=== PATIENT | male | born 1955 ===

== ENCOUNTER → 2021-09-28 10:32 | Outpatient (CLI) | payer MEDICARE, SELFPAY ==
[2021-09-28 21:18] LABS: SARS-CoV-2 RNA PCR Negative
== END ==
PROVIDERS: PCP Internal Medicine; Visit Provider Internal Medicine
DX: J11.1 Influenza due to unidentified influenza virus with other respiratory manifestations (principal); Z20.822 Contact with and (suspected) exposure to COVID-19
CPT/HCPCS: C9803; U0003; U0005

== ENCOUNTER 2021-10-24 11:22 | Emergency (ER) | payer MEDICARE, SELFPAY ==
--- NOTE | ~2021-10-24 | XR_ITS ---
XR tibia fibula LT 2V DATE: 10/24/2021 13:06 INDICATION: Patient fell this morning. Left ankle pain, swelling TECHNIQUE: AP and lateral views COMPARISON: October 24, 2021 left ankle FINDINGS: There is a linear oblique fracture through the proximal fibular shaft with one cortical wid th lateral and anterior displacement. Linear minimally posterosuperiorly displaced posterior malleolar fracture of the distal tibia. Alignment appears intact at the knee and ankle joints. IMPRESSION: Approximately one cortical width anterolateral displacement and linear oblique fracture o f the proximal fibular shaft Minimally posterior superiorly displaced posterior malleolar fracture Reviewed, dictated and finalized at location A. L CUT OFF SAW OPERATOR IMPRESSION: Approximately one cortical width anterolateral displacement and daniela ear oblique fracture of the proximal fibular shaft Minimally posterior superiorly displaced posterior malleolar fracture
--- NOTE | ~2021-10-24 | CT_ITS ---
EXAMINATION: CT ankle LT wo con DATE: 10/24/2021 13:54 INDICATION: Posterior malleolar fracture at the left ankle TECHNIQUE: High resolution computed tomography (CT) of the left ankle was performed without intraveno us contrast. Additional sagittal and coronal reconstructions were performed. The mA was adjusted acco rding to patient size. Iterative reconstruction technique was employed. The dose-length product was 3 97.63 mGy-cm. COMPARISON: Left ankle and tibia/fibular radiographs dated 10/24/2021 FINDINGS: Minimally displaced coronally oriented fracture extending across the posterior malleolus. There is co mminution with multiple tiny fracture fragments along the articular surface at the level of the joint line. There is slight widening of the medial clear space as well as widening of the distal tibiofibu lar syndesmosis which along with the previous noted fracture the more proximal fibula would be consis tent with disruption of the deltoid ligament, anterior inferior tibiofibular ligament and tibiofibula r syndesmosis. There are heterotopic ossicles along the deep deltoid ligament as well as prominent hy pertrophic change at the inferior tip of the lateral malleolus both likely sequela of chronic sprains . There is irregular cortical contour along the medial rim of the talar dome with chronic appearance which could represent sequela of either chronic osteochondral lesion or overlying chondromalacia. Ent hesopathic ossicles at the calcaneal insertion of the distal Achilles tendon as well as at the calcan eal origin of the proximal plantar aponeurosis. Likely osteoarthritis related degenerative subchondra l cystic changes at the first and second tarsal metatarsal joints as well as at the articulation betw een the medial and mid cuneiforms. IMPRESSION: 1. Nondisplaced comminuted fractures of the posterior malleolus of the distal left tibia. 2. Slight widening of the medial clear space, distal tibiofibular syndesmosis and more proximal fract ure of the fibula seen on prior radiographs suggesting disruption of the deltoid ligament, anterior i nferior tibiofibular ligament and tibiofibular syndesmosis. 3. Gaseous/hypertrophic changes suggesting sequela of prior chronic sprains of the medial and lateral ankle ligaments. Reviewed, dictated and finalized at location A. PRESS HAND IMPRESSION: 1. Nondisplaced comminuted fractures of the posterior malleolus of the distal l eft tibia. 2. Slight widening of the medial clear space, distal tibiofibular syndesmosis a nd more proximal fracture of the fibula seen on prior radiographs suggesting di sruption of the deltoid ligament, anterior inferior tibiofibular ligament and t ibiofibular syndesmosis. 3. Gaseous/hypertrophic changes suggesting sequela of prior chronic sprains of the medial and lateral ankle ligaments.
--- NOTE | ~2021-10-24 | XR_ITS ---
EXAMINATION: XR ankle LT min 3V EXAM DATE: 10/24/2021 11:44 INDICATION: fall, edema and pain TECHNIQUE: Left ankle frontal, lateral and oblique projections obtained and reviewed. There is no pr ior study for comparison. FINDINGS: The left ankle mortise appears intact. On the lateral projection there is lucency throug h the posterior aspect of the malleolus, however portions appear to be better corticated. Could be ol d fracture or acute refracture of prior injury. This finding has been indicated, marked on the examin ation for review, clinical correlation. Ossification distal to the medial malleolus consistent with p rior avulsion injury. Base of 5th metatarsal unremarkable. There is ankle swelling anteromedially. IMPRESSION: Posteriorly located cortical abnormality probably tibial, could be chronic or acute on o n chronic finding. Clinical correlation, consider CT without contrast. Reviewed, dictated and finalized at location B. IAL EDUCATION RESOURCE TEACHER IMPRESSION: Posteriorly located cortical abnormality probably tibial, could be chronic or acute on on chronic finding. Clinical correlation, consider CT with out contrast.
[2021-10-24 11:27] VITALS: BP 157/76; PULSE 99; RESP 20; TEMP 36.4; O2SAT 100
--- NOTE | 2021-10-24 12:40 | ED.EXTPRO ---
HPI - Extremity Problem General Chief complaint: Fall Stated complaint: fall - ankle injury Time Seen by Provider: 10/24/21 11:32 Source: patient Mode of arrival: ambulatory Limitations: no limitations History of Present Illness HPI Narrative: 66-year-old male Slipped and fell this morning Complains of left-sided ankle pain He has been able to bear some weight but was concerned because of the speed with which swelling ensued No head injury no other injuries no other complaints Related Data Allergies Allergy/AdvReac Type Severity Reaction Status Date / Time atorvastatin Allergy Unknown Unknown Verified 10/24/21 11:30 simvastatin Allergy Unknown Unknown Verified 10/24/21 11:30 Review of Systems Review of Systems: All systems reviewed & are unremarkable except as noted in HPI and below Constitutional: Constitutional: Denies chills, Denies fever(s) and Denies headache(s) ENT: Denies headache(s) Cardiovascular: Cardiovascular: Denies dyspnea Gastrointestinal: Gastrointestinal: Denies vomiting Musculoskeletal: Musculoskeletal: Denies back pain, Denies deformity, Reports arthralgias, Reports joint swelling and Denies numbness Integumentary/Breasts: Skin/Breast: Denies wounds Neurologic: Denies headache(s), Denies focal weakness and Denies numbness PMFSH Family History Family History Father Hypertension Social History Social History Smoking status: Light tobacco smoker Alcohol intake: current Exam Const: General: cooperative, no acute distress and alert Orientation/consciousness: patient oriented x3 (alert) HENMT: Head: normal to inspection, normocephalic, atraumatic, no contusions and no hematomas Ears: external ears normal General nose exam: no epistaxis Eyes: Conjunctivae: conjunctivae normal EOM: EOMs intact bilaterally Neck: Neck: normal visual inspection, supple and no JVD Resp: Effort & Inspection: normal respiratory effort and not labored Auscultation: other (BS =) Skin: General skin exam: normal color and no rashes or lesions noted Neuro: General: patient oriented x3 (alert) and moves all extremities Speech: normal speech Extrem: Other: Left lower extremity, no tenderness or swelling at the knee, slight tenderness over the proximal fibula, no tenderness at the base of the fifth metatarsal or distal fibula, there is tenderness at the posterior margin of the medial malleolus Psych: Affect: normal affect Course Course Emergency Course: Discussed with Dr. Hall from Ortho and got some extra imaging and labs for him Discussed with Dr. Jennings, because the EKG is not normal Will start him on low-dose metoprolol and he can be seen in the office probably tomorrow Have Ortho follow-up on Sunday He was splinted by techs and given crutches and understands not to put any weight on his splint and elevate the foot is much as possible Vital Signs Vital signs: Vital Signs Temperature 36.4 C 10/24/21 11:27 Pulse Rate 99 10/24/21 11:27 Respiratory Rate 20 10/24/21 11:27 Blood Pressure 157/76 H 10/24/21 11:27 Pulse Oximetry 100 10/24/21 11:27 Temperature 36.4 C 10/24/21 11:27 Pulse Rate 99 10/24/21 11:27 Respiratory Rate 20 10/24/21 11:27 Blood Pressure 157/76 H 10/24/21 11:27 Pulse Oximetry 100 10/24/21 11:27 MDM - Extremity (Nontraumatic) Lab Data Result diagrams: 10/24/21 15:04 10/24/21 15:04 Labs: Lab Results 10/24/21 10/24/21 10/24/21 Range/Units 15:04 15:04 15:04 WBC 9.6 (4.5-10.0) K/mm3 RBC 5.24 (4.6-6.20) M/mm3 Hgb 17.3 (14.0-18.0) g/dL Hct 50.2 (42.0-52.0) % MCV 95.8 (80-100) fl MCH 33.0 (26-34) pg MCHC 34.5 (32-36) g/dl RDW 12.5 (11.5-14.5) % Plt Count 208 (150-375) k/mm3 MPV 10.9 H (7.4-10.4) fl Immature Gran % (Auto) 0.4 (0-0.5) %
[2021-10-24 15:20] LABS: Basophils Absolute Auto 0.1 K/mm3 (0.0-0.1); Basophils Percent Auto 0.5 % (0.2-1.2); Eosinophils Percent Auto 0.4 % (0-4.4); Hematocrit 50.2 % (42.0-52.0); Hemoglobin 17.3 g/dL (14.0-18.0); Immature Granulocyte Absolute 0.04 K/mm3 (0.00-0.031); Immature Granulocyte Percent A 0.4 % (0-0.5); Lymphocytes Absolute Auto 1.13 K/mm3 (0.9-3.2); Lymphocytes Percent Auto 11.8 % (18.3-44.2); Mean Corpuscular HGB Conc 34.5 g/dl (32-36); Mean Corpuscular Volume 95.8 fl (80-100); Mean Platelet Volume 10.9 fl (7.4-10.4); Monocytes Absolute Auto 0.4 K/mm3 (0.1-0.6); Monocytes Percent Auto 4.6 % (2.6-8.5); Neutrophils Absolute Auto 7.9 K/mm3 (1.3-6.7); Neutrophils Percent Auto 82.3 % (45.5-73.1); Platelet Count Result 208 k/mm3 (150-375); Red Blood Count 5.24 M/mm3 (4.6-6.20); Red Cell Distribution Width 12.5 % (11.5-14.5); White Blood Count 9.6 K/mm3 (4.5-10.0)
[2021-10-24 15:33] LABS: Anion Gap 10 mmol/L (8-16); Blood Urea Nitrogen 15 mg/dL (9-20); Calcium 9.4 mg/dL (8.4-10.2); Carbon Dioxide 27 mmol/L (22-30); Chloride 102 mmol/L (98-107); Estimated CRCL calculation 73 ml/min; Estimated Glomerular Filt Rate > 60; Glucose 199 mg/dL (65-110); Sodium 139 mmol/L (137-145)
[2021-10-24 15:49] LABS: Vitamin D 25 Hydroxy 30.4 ng/mL
[2021-10-24] MEDS: HYDROcodone/acetaminophen (*CRX) 7.5-325 MG TABLET 1 TAB PO (17:29)
--- NOTE | 2021-10-24 17:29 | ECG_ITS ---
Measurements Intervals [place] Rate: 100 P: VA: 0 QRS: 23 QRSD: 86 T: 44 QT: 344 QTc: 445 Interpretive Statements ATRIAL FIBRILLATION WITH RAPID VENTRICULAR RESPONSE VENTRICULAR PREMATURE COMPLEX ANTEROSEPTAL INFARCT, AGE INDETERMINATE BASELINE ARTIFACT- I, II, III, AVR, AVL, AVF, V3-V4 ABNORMAL ECG Electronically Signed On 10-25-2021 7:40:12 [employer] by German Portillo D.O.
[2021-10-24 17:30] VITALS: BP 169/118; PULSE 74; RESP 20; O2SAT 99
[2021-10-24] MEDS: METOPROLOL TARTRATE 25 MG TABLET PO (17:30)
== END 2021-10-24 17:53 | disposition home or self-care (01) ==
PROVIDERS: Emergency Provider Emergency Medicine; PCP Internal Medicine
DX: S82.862A Displaced Maisonneuve's fracture of left leg, initial encounter for closed fracture (principal); I48.91 Unspecified atrial fibrillation; I49.3 Ventricular premature depolarization; F17.200 Nicotine dependence, unspecified, uncomplicated; R94.31 Abnormal electrocardiogram [ECG] [EKG]; Z79.899 Other long term (current) drug therapy; W00.0XXA Fall on same level due to ice and snow, initial encounter
CPT/HCPCS: 29515; 36415; 73590; 73600; 73610; 73700; 80048; 82306; 85025; 93005; 99284; A9270

== ENCOUNTER 2021-11-04 03:52 | Day surgery (SDC) | payer MEDICARE, SELFPAY ==
[2021-10-25 11:22] VITALS: BMI 29.9
--- NOTE | 2021-10-25 11:40 | PC.NURSE ---
Report to the Outpatient Waiting Room, entrance under the green pavilion located off [facility], at time __1100AM on date __10/31/21____. OR Time: __1:00PM . - You will be asked a series of questions to screen for COVID 19 for your protection. - A mask is required within the hospital. - No visitors are allowed at this time. Preoperative COVID Testing Requirements: No COVID Test needed if: (proof is required; if not received patient will have Rapid Test prior to entry) - Patient has received COVID Vaccine at least 14 days prior to procedure date or - Patient has positive COVID test result within last 90 days of surgery date. COVID Test needed if above criteria is not met If not COVID vaccinated a COVID test must be conducted within 72 hours of surgery and patient is asked to isolate self from time of testing until procedure. You will go to the [facility] Testing Site for your COVID testing. The [facility] is located at the corner of [address] [facility]. You will only be called if COVID results are positive and your surgeon may reschedule your elective surgery date. Patients may have clear liquids (water, carbonated beverages, clear teas, apple juice) until 3 hours prior to surgery with a maximum of 20 ounces. - No food from midnight until time of surgery - Infants may have breast milk until 4 hours before surgery, formula 6 hours prior to surgery. - Children will be allowed to drink immediately following surgery. If applicable, please bring a bottle or sippy cup to assist with drinking. Juice, water, soda, and popsicles are readily available. For infants on formula, please bring formula the day of surgery. Pacifiers are allowed. Take the following medications with a SIP of water the morning of surgery: ____METOPROLOL, HYDROCODONE NEEDED Medications to discontinue per physician ALL VITAMINS/SUPPLEMENTS 3 DAYS PRE-OP Date to take last dose 10/28/21 Please no make-up, nail khmer, hairspray, perfume, deodorant, or body powder the day of surgery. No jewelry (including any body piercings) or valuables the day of surgery, leave them at home. Please take a shower or bath the night before, or the morning of, surgery with an antibacterial soap. Wear comfortable, loose fitting clothing. Children are encouraged to wear pajamas. - Jewelry must be removed prior to entering the operating room. Rings and piercings that are not removed may be cut off. - The hospital will not accept responsibility for valuables. - Please leave all valuables, including medications, at home the day of surgery. If you are going home after surgery, a licensed driver merchandiser must drive you home. - NO public transportation without another adult. - We recommend that an adult stay with you for 24 hours following discharge. - We also recommend that you do not drive, make important decision, drink alcoholic beverages, or take any drugs that were not prescribed by your health care provider for at least 24 hours after your discharge time. For Pediatric surgeries, we recommend two adults accompany the child home (only one inside the building at this time). Follow any additional instructions given to you from your surgeon. Telephone instructions given to __PATIENT and asked if any additional questions and then verbalized understanding. Patient advised to call surgeon office or pre surgery nurse liaison [phone] if any additional questions.
--- NOTE | 2021-10-27 10:24 | PC.NURSE ---
Report to the Outpatient Waiting Room, entrance under the green pavilion located off [facility], at time __10:00AM__ on date 11/04/21 . OR Time: ___12:00PM . - You will be asked a series of questions to screen for COVID 19 for your protection. - A mask is required within the hospital. - No visitors are allowed at this time. Preoperative COVID Testing Requirements: No COVID Test needed if: (proof is required; if not received patient will have Rapid Test prior to entry) - Patient has received COVID Vaccine at least 14 days prior to procedure date or - Patient has positive COVID test result within last 90 days of surgery date. COVID Test needed if above criteria is not met If not COVID vaccinated a COVID test must be conducted within 72 hours of surgery and patient is asked to isolate self from time of testing until procedure. You will go to the [facility] Testing Site for your COVID testing. The [facility] is located at the corner of [address] [facility]. You will only be called if COVID results are positive and your surgeon may reschedule your elective surgery date. Patients may have clear liquids (water, carbonated beverages, clear teas, apple juice) until 3 hours prior to surgery with a maximum of 20 ounces. - No food from midnight until time of surgery - Infants may have breast milk until 4 hours before surgery, formula 6 hours prior to surgery. - Children will be allowed to drink immediately following surgery. If applicable, please bring a bottle or sippy cup to assist with drinking. Juice, water, soda, and popsicles are readily available. For infants on formula, please bring formula the day of surgery. Pacifiers are allowed. Take the following medications with a SIP of water the morning of surgery: METOPROLOL, HYDROCODONE NEEDED Medications to discontinue per physician ALL VITAMINS/SUPPLEMENTS 3 DAYS PRE-OP Date to take last dose 10/31/21 Please no make-up, nail cape verdean, hairspray, perfume, deodorant, or body powder the day of surgery. No jewelry (including any body piercings) or valuables the day of surgery, leave them at home. Please take a shower or bath the night before, or the morning of, surgery with an antibacterial soap. Wear comfortable, loose fitting clothing. Children are encouraged to wear pajamas. - Jewelry must be removed prior to entering the operating room. Rings and piercings that are not removed may be cut off. - The hospital will not accept responsibility for valuables. - Please leave all valuables, including medications, at home the day of surgery. If you are going home after surgery, a licensed tank wagon driver must drive you home. - NO public transportation without another adult. - We recommend that an adult stay with you for 24 hours following discharge. - We also recommend that you do not drive, make important decision, drink alcoholic beverages, or take any drugs that were not prescribed by your health care provider for at least 24 hours after your discharge time. For Pediatric surgeries, we recommend two adults accompany the child home (only one inside the building at this time). Follow any additional instructions given to you from your surgeon. Telephone instructions given to ___PATIENT and asked if any additional questions and then verbalized understanding. Patient advised to call surgeon office or pre surgery nurse liaison [phone] if any additional questions.
--- NOTE | 2021-11-03 14:58 | WPDANESEPPF ---
Anes - Initial Pre Proc Eval Procedure: Operation Date: 11/04/21 12:00 Proposed Procedures p Open Reduction Internal Fixation with Syndesmotic Fixation Left Ankle - Everton Hall MD Date/Time: 11/03/21 14:58 Surgeon: Everton Hall MD Pre Op Diagnosis: left ankle massoneuve fx Patient Data Age: 66 Gender: M Height: 1.68 m Weight: 84 kg Allergies Allergy/AdvReac Type Severity Reaction Status Date / Time atorvastatin AdvReac Unknown HEAT Verified 10/27/21 10:23 INTOLERANT, MUSCLE WEAKNESS simvastatin AdvReac Unknown HEAT Verified 10/27/21 10:23 INTOLERANCE, MUSCLE WEAKNESS Home Medications Medication Instructions Recorded Confirmed Type Km Supplement 1 tab-cap PO DAILY 10/25/21 10/27/21 History hydrocodone-acetaminophen 1 tablet PO Q4-6H PRN 10/25/21 10/27/21 History lorazepam 1 mg PO HS 10/25/21 10/27/21 History metoprolol tartrate 50 mg PO BID 10/27/21 10/27/21 History Results Review: All pre-operative results and documents have been reviewed as part of the pre-operative evaluation. COUNTS INCLUDE 234 BEDS AT THE [facility] Past Medical History Medical History (Updated 11/03/21 @ 15:00 by Kieran Oneal MD) Anxiety Atrial fibrillation CHF (congestive heart failure) ef 30% Osteoarthritis Overweight (BMI 25.0-29.9) Family History Family History Father Hypertension Social History Social History Smoking packs per day: 1 Smoking cigarettes per day: 20.0 Years smoked: 20 Smoking pack-years: 20.00 Smoking status: Former smoker Tobacco type: cigarettes Smoking end date: 03/17/00 Alcohol intake: current Drinks per week: 5 Substance use: current Substance use type: marijuana Other substance usage details: SMALL BUD EVERY DAY Living arrangements: with family Additional living arrangements comments: Spiritual care concerns: No Anes - Eval Final PreProcedure Day of Procedure 11/03/21 14:58 Patient weight: overweight Heart: regular rate and rhythm Lungs: clear to auscultation and normal air movement Airway: Mallampati scale class II Neurological: alert and oriented Last oral intake: >/= 8 hours ASA classification: IV Emergent: no Anesthetic plan: proceed Anesthesia type and monitoring: general LMA Results Review: All pre-operative results and documents have been reviewed as part of the pre-operative evaluation. Informed Consent: The patient's anesthetic plan and its attendant risks and benefits were discussed with the patient/family/POA. Questions were solicited and answers provided to the satisfaction of the patient/family/POA.
[2021-11-04] VITALS (15 sets, daily range): BP systolic 113–134; BP diastolic 86–96; PULSE 45–111; RESP 15–20; TEMP 36.1–37.1; O2SAT 96–100
--- NOTE | ~2021-11-04 | XR_ITS ---
EXAMINATION: XR surgery orthopedic DATE: 11/04/2021 14:37 INDICATION: ORIF left ankle fracture TECHNIQUE: 5 fluoroscopic images of the left ankle were obtained during procedure performed by Dr. Nate lora. Radiologist was not present for the imaging or procedure. The amount of fluoroscopy time used during this procedure was 2.8 minutes. COMPARISON: 11/03/2021 FINDINGS: Images demonstrate reduction and temporary percutaneous pin fixation of the syndesmotic injury of the left lower leg normal alignment with congruent ankle mortise. Subsequent images demonstrate syndesmo tic fixation with a lateral to medially directed cancellous screw extending across the metadiaphyseal regions of the distal tibia and fibula and a pair of tightrope type syndesmotic fixation extending a cross the metaphyseal regions of the distal tibia and fibula. No significant change in negligible dis placement of the previous noted comminuted fracture along the posterior malleolus which is in near-an atomic alignment with slight depression of the articular surface along the posterior most remaining o f the tibial plafond and but no significant fracture gap or step-off at the articular fracture line. IMPRESSION: 1. Near-anatomic alignment post reduction and internal fixation of the tibiofibular syndesmotic injur y with posterior malleolar fracture which remains in near-anatomic alignment. Reviewed, dictated and finalized at location A. IFOCAL BUTTON GENERATOR IMPRESSION: 1. Near-anatomic alignment post reduction and internal fixation of the tibiofib ular syndesmotic injury with posterior malleolar fracture which remains in near -anatomic alignment.
--- NOTE | 2021-11-04 08:14 | PM.IMHP ---
H&P: HPI History of Present Illness Date/Time: 11/04/21 08:14 66-year-old male who presents today for syndesmotic fixation left ankle. Patient had a twisting injury to the left ankle on 11/13/2021. He was seen in the emergency room. Initial x-rays showed a comminuted posterior malleolus fracture as well as a proximal fibular fracture. CT scan was done which showed widening of the syndesmosis as well as prominent comminution of posterior malleolus fragment. due to the widening of the syndesmosis as well as some mild shortening of the fibula is recommended for ORIF of the ankle to get the fibula reduced to anatomic alignment and stabilization. Patient has had a newly diagnose atrial fibrillation. He has had an echocardiogram which showed a moderate global left ventricular systolic hypokinesis. His ejection fraction was 30%. He also has moderate enlargement of the left atrium. Patient had a cardiac catheterization done 3 days ago, he was found to have some coronary artery disease but did not require stenting of any arteries. His ejection fraction was still at 31%. Dr. Chauhan, the electric meter installer has cleared him for surgery but feels patient is at a high risk because of his low ejection fraction. Chief Complaint: Left ankle fracture Review of Systems Review of Systems: All systems reviewed & are unremarkable except as noted in HPI and below PMFSH Past Medical History Medical History Anxiety Atrial fibrillation CHF (congestive heart failure) ef 30% Osteoarthritis Overweight (BMI 25.0-29.9) Family History Family History Father Hypertension Social History Social History Smoking packs per day: 1 Smoking cigarettes per day: 20.0 Years smoked: 20 Smoking pack-years: 20.00 Smoking status: Former smoker Tobacco type: cigarettes Smoking end date: 03/17/00 Alcohol intake: current Drinks per week: 5 Substance use: current Substance use type: marijuana Other substance usage details: SMALL BUD EVERY DAY Living arrangements: with family Additional living arrangements comments: Spiritual care concerns: No Meds Home Medications and Allergies Home Medications Medication Instructions Recorded Confirmed Type Km Supplement 1 tab-cap PO DAILY 10/25/21 10/27/21 History hydrocodone-acetaminophen 1 tablet PO Q4-6H PRN 10/25/21 10/27/21 History lorazepam 1 mg PO HS 10/25/21 10/27/21 History metoprolol tartrate 50 mg PO BID 10/27/21 10/27/21 History Allergies Allergy/AdvReac Type Severity Reaction Status Date / Time atorvastatin AdvReac Unknown HEAT Verified 10/27/21 10:23 INTOLERANT, MUSCLE WEAKNESS simvastatin AdvReac Unknown HEAT Verified 10/27/21 10:23 INTOLERANCE, MUSCLE WEAKNESS Exam Narrative: 66-year-old male alert pleasant. He is 5 ft 6 and 180 lb. He denies any numbness to light touch left foot. He did notice some numbness over the dorsal lateral foot. 2+ dorsalis pedis pulse. [id number] diffuse swelling around the ankle. No swelling the upper calf. Posterior calf is nontender. Mild tenderness at the proximal fibular neck. Moderate tenderness over the anterior lateral ankle and medial deltoid ligament. Skin is all intact. Resp: Auscultation: clear to auscultation bilaterally Cardio: Rhythm: abnormal rhythm Assessment and Plan Additional Plan 66-year-old male who has a Masoneuve fracture of the left ankle With disruption of the syndesmotic ligament. Dr. Hall has recommended open reduction and fixation of the syndesmosis. Surgical procedure as well as risk and complications were discussed and all questions were answered we will proceed. Patient has been placed on a baby aspirin since his cardiac catheterization. He will start Eliquis 5 mg b.i.d. 48 hours postoperative
[2021-11-04] MEDS: LACTATED RINGERS 1,000 ML 30 ML IV CONT ×2 (10:45→14:41)
[2021-11-04] MEDS: ACETAMINOPHEN 500 MG TABLET 1000 MG PO ×3 (10:45→22:40)
--- NOTE | 2021-11-04 10:59 | P.PNAN_ITS ---
Anes - Initial Pre Proc Eval Procedure: Operation Date: 11/04/21 12:00 Proposed Procedures p Open Reduction Internal Fixation with Syndesmotic Fixation Left Ankle - Everton Hall MD Date/Time: 11/04/21 10:59 Surgeon: Everton Hall MD Pre Op Diagnosis: left ankle massoneuve fx Patient Data Age: 66 Gender: M Height: 1.68 m Weight: 84 kg Allergies Allergy/AdvReac Type Severity Reaction Status Date / Time atorvastatin AdvReac Unknown HEAT Verified 11/04/21 11:00 INTOLERANT, MUSCLE WEAKNESS simvastatin AdvReac Unknown HEAT Verified 11/04/21 11:00 INTOLERANCE, MUSCLE WEAKNESS Home Medications Medication Instructions Recorded Confirmed Type Km Supplement 1 tab-cap PO DAILY 10/25/21 10/27/21 History hydrocodone-acetaminophen 1 tablet PO Q4-6H PRN 10/25/21 10/27/21 History lorazepam 1 mg PO HS 10/25/21 10/27/21 History metoprolol tartrate 50 mg PO BID 10/27/21 10/27/21 History Patient hx anesthesia problems: none Family hx anesthesia problems: none Results Review: All pre-operative results and documents have been reviewed as part of the pre-operative evaluation. [facility] Past Medical History Medical History (Updated 11/04/21 @ 10:59 by Luca Kim MD) Anxiety Atrial fibrillation CHF (congestive heart failure) ef 30% History of reduction of orbital fracture Osteoarthritis Overweight (BMI 25.0-29.9) Family History Family History Father Hypertension Social History Social History Smoking packs per day: 1 Smoking cigarettes per day: 20.0 Years smoked: 20 Smoking pack-years: 20.00 Smoking status: Former smoker Tobacco type: cigarettes Smoking end date: 03/17/00 Alcohol intake: current Drinks per week: 5 Substance use: current Substance use type: marijuana Other substance usage details: SMALL BUD EVERY DAY Living arrangements: with family Additional living arrangements comments: Spiritual care concerns: No Anes - Eval Final PreProcedure Day of Procedure 11/04/21 10:59 Patient weight: overweight Heart: irregular rhythm Lungs: clear to auscultation Airway: Mallampati scale class II Neurological: alert and oriented Last oral intake: >/= 8 hours ASA classification: III Emergent: no Anesthetic plan: proceed Anesthesia type and monitoring: general LMA and standard monitoring Results Review: All pre-operative results and documents have been reviewed as part of the pre-operative evaluation. Informed Consent: The patient's anesthetic plan and its attendant risks and benefits were discussed with the patient/family/POA. Questions were solicited and answers provided to the satisfaction of the patient/family/POA.
[2021-11-04] MEDS: KETOROLAC 15 MG/ML VIAL (*BKC) IV PUSH (11:00)
[2021-11-04] MEDS: ceFAZolin SODIUM 1 GM VIAL IRRIGATION (11:57)
--- NOTE | 2021-11-04 12:03 | WPDHPUPDATE1 ---
History and Physical Update Update Date/Time: 11/04/21 12:03 History and Physical has been reviewed, including an updated exam of the patient. There are NO changes in the patient's condition. Risks, benefits, and alternatives have been discussed and questions answered. Patient agrees to proceed with procedure.
--- NOTE | 2021-11-04 12:18 | WPDANESPNB ---
Anes - Peripheral Nerve Block Date/Time: 11/04/21 12:18 I have discussed with the patient/family/POA the placement of a peripheral nerve block for post-operative pain management, including associated risks, benefits, complications, and side effects. Alternative methods of post-operative analgesia were detailed. Questions were solicited and answers provided to the satisfaction of the patient/family/POA. Time-Out: A pre-procedural Time-Out was completed immediately before starting the procedure and confirmed: Patient Identification, Site, Procedure, Patient Position and the Availability of Requisite Equipment. Clinical Indications: Acute post-operative pain management requested by the operative surgeon. Nerve Block Insertion Note Anes-nerve block: posterior fossa sciatic left and other (saphenous) Patient position: supine Skin prep: chlorhexidine Needle: 22 gauge, stimulating, insulated echogenic needle. Needle length: 80 mm Technique: nerve stimulation lost at (mA) (0.3) Injectate: bupivacaine 0.5% with epi 5 mcg/ml (22cc sciatic, 10 cc saphenous) and dexamethasone (mg) (8) Observations: tolerated well Complications: none Procedure start time:: 1213 Procedure end time:: 1216
[2021-11-04] MEDS: ceFAZolin 2 GM/D5W 50 ML 2 GM/50 ML BAG IVPB (12:22)
--- NOTE | 2021-11-04 15:23 | W.PM.PROC2 ---
Procedure Note - Detailed Date of Procedure 11/04/21 Pre-op Diagnosis left ankle jillian fx with comminuted posterior malleolus fracture, medial clear space widening and displaced proximal fibular shaft fracture. Post-op Diagnosis same Procedure Performed Open reduction internal fixation left fibula and syndesmotic repair with one 4.5 mm cortical screw and 2 syndesmotic tight rope device. Surgeon Everton Hall MD Institutional Nutrition Consultant toshia Anesthesia general Description of Procedure Patient brought to the operating room and general anesthesia was administered. Bump was placed underneath the buttock and rolled blankets under the knee and the left calf foot and ankle prepped draped usual fashion. He received 2 g of Ancef weight based vancomycin preoperatively. He had very little swelling much better than on Sunday. The leg was prepped with DuraPrep covered with Ioban. A 3-1/2 inch longitudinal incision was made over the lateral malleolus curving anteriorly at the level of the joint line. Dissection was carried down to the lateral malleolus. We gently mobilized the superficial branch peroneal nerve anteriorly over the anterior portion of the lateral malleolus and incised the anterolateral ankle capsule visualizing the anterior lateral talar dome the proximal aspect of the anterior margin of the articular facet of lateral malleolus and the anterolateral margin of the tibial plafond. A guide pin from the 4.5 cannulated screw set was drilled through the distal fibular shaft aiming 30? anterior to the coronal plane from lateral to medial. This was penetrated through both cortices of the lateral malleolus and brought in approximation to the lateral surface of the tibia. We prior to doing this visualized the seroma nerve running right along the posterior lateral margin of the distal fibula. Usually it runs midway between the fibular shaft and the lateral edge of the Achilles tendon on the surface of the fascia at this level but in this case it did not and to protect it from being damaged by application of clamps and so forth this was decompressed by releasing the fascia overlying the nerve which allowed the nerve to be gently mobilized out of the way allowed us to place a lobster claw bone clamp the distal fibular shaft. We then made a 1/2 inch medial incision over the medial tibial metaphysis and carefully dissected down to the bone surface retracting the saphenous vein nerve posteriorly and placed a fold tip reduction tenaculum clamp on the anteromedial tibial metaphysis and the distal fibular shaft laterally for some gentle compression. With retractors exposing the anterolateral aspect of the ankle joint we could internally rotate and applied traction to the fibula and fibula head to be anteriorly translated a few mm which gave anatomic reduction of the articular surfaces at the intersection of the 3 described articular landmarks. With this being held with the appropriate tension we drove the guidewire across the distal tibial shaft and then brought in fluoro and saw that we indeed did have an anatomic appearing mortise and that the fibula appeared out to length and the syndesmosis was anatomic at the articular surfaces. A 2nd guide pin was placed with applied traction as well. We then placed the guide pin for the Arthrex syndesmotic tight rope across the lateral malleolus and across the tibial metaphysis 1 1/2 cm proximal to the tibial plafond again at the appropriate angle 30? anterior to the coronal plane. We then passed the syndesmotic tight rope device and deployed the Endobutton medially and this coincidentally came across that the location of her previous 1/2 inch incisions were toes able to make sure that the saphenous nerve and vein were not entrapped under the button and this tight rope was tightened. We then used the 3.2 mm cannulated drill from the 4.5 mm cannulated screw set to drill across the fibular shaft at the level the proximal guide pin and across th
--- NOTE | 2021-11-04 16:10 | ADMGEN ---
This patient, Edgardo Lucas, was admitted to Medical Room 256-. Patient/family oriented to hospital policies and general routines including ID bracelet, bed and alarms, visiting hours, pain management, procedures, bathroom and other care routines, personal items, smoking policy, room service/diet, and visiting hours. Information on how to activate the Rapid Response Team has been discussed. Patient/Family are encouraged to report perceived risks to care and to ask questions if they do not understand what they are told or what they should do.
[2021-11-04] MEDS: oxyCODONE HCL (*CRX) 5 MG TAB IR PO ×2 (17:36→21:00)
--- NOTE | 2021-11-04 20:00 | WPDCN ---
Assessment and Plan Assessment and plan (1) Closed left ankle fracture: Code(s): S82.892A - Other fracture of left lower leg, initial encounter for closed fracture Status: Acute Assessment and Plan: Postoperative day 0 status post ORIF left fibular and syndesmotic repair. Wound care, pain control, and DVT prophylaxis will be deferred to Dr. Hall. (2) Congestive heart failure: Code(s): I50.9 - Heart failure, unspecified Status: Acute Assessment and Plan: Recent echocardiogram showed an EF of about 30%. Appears clinically compensated. Avoid IV fluids and over-hydration. (3) Atrial fibrillation: Code(s): I48.91 - Unspecified atrial fibrillation Status: Acute Assessment and Plan: Continue metoprolol for rate control. (4) Anxiety: Code(s): F41.9 - Anxiety disorder, unspecified Status: Acute Assessment and Plan: Continue lorazepam at bedtime as needed. Additional Plan Thank you for allowing us to participate in this patient's care. Please do not hesitate to contact us with any questions. Supervising physician for this medical consultation is Dr. Saranya Castano. HPI Data of Consult Date/Time: 11/04/21 20:00 Requesting Physician: Everton Hall MD Reason for consult: Post-operative medical management. Primary Care Provider: Pal JenningsMD Consult Narrative Narrative: This is a 66-year-old male with history of congestive heart failure, atrial fibrillation, and anxiety whom the hospitalist service has been consulted for management of his medical conditions postoperatively. He had a fall after slipping on the ice on 10/24/2021 and sustained a left ankle maisonneuve fracture. In addition to the ankle fracture, he was also found to be in new onset atrial fibrillation. A subsequent workup revealed a decreased ejection fraction of around 30%. He underwent cardiac catheterization and per patient report there was perhaps some mild, nonobstructing coronary disease and medical management was pursued. He is on metoprolol for rate control but has not yet been started on anticoagulation in anticipation of surgery today. His surgery was performed under general anesthesia with no immediate complications documented an estimated blood loss of 10 mL. At the time my evaluation he was doing quite well and has minimal discomfort. He specifically denies postoperative fever, chills, sweats, chest pain, shortness of breath, nausea, and vomiting. Review of Systems Review of Systems: Twelve systems were reviewed and are negative except for as per HPI. [facility] Past Medical History Medical History (Updated 11/04/21 @ 22:46 by Danuta Duenas PA-C) Anxiety Atrial fibrillation Congestive heart failure Recent ejection fraction of about 30%. Diverticulitis Hearing loss History of reduction of orbital fracture Osteoarthritis Surgical History Surgical History (Updated 11/04/21 @ 22:45 by Danuta Duenas PA-C) History of bilateral cataract extraction History of tonsillectomy Status post excision of lipoma (08/2018) Right upper back. Status post repair of fracture of orbit Family History Family History Father Hypertension Social History Social History (Updated 11/04/21 @ 22:46 by Danuta Duenas PA-C) Social History: Surrogate decision maker: Pinky Lucas, . Code status: Full code. Smoking packs per day: 1 Smoking cigarettes per day: 20.0 Years smoked: 20 Smoking pack-years: 20.00 Smoking status: Former smoker Additional smoking assessment comments: Quit in 2007. Alcohol intake: current Drinks per week: 5 Substance use: current Substance use type: marijuana Other substance usage details: SMALL BUD EVERY DAY Living arrangements: with family Additional nhan
[2021-11-04] MEDS: SENNA/DOCUSATE SODIUM TABLET 2 TAB PO (21:25)
[2021-11-04] MEDS: FAMOTIDINE 20 MG TABLET PO (21:26)
[2021-11-04] MEDS: METOPROLOL TARTRATE 50 MG TAB PO (21:26)
[2021-11-04] MEDS: LORazepam (*CRX) 1 MG TABLET PO (22:40)
[2021-11-05] VITALS (8 sets, daily range): BP systolic 108–124; BP diastolic 69–90; PULSE 72–96; RESP 18; TEMP 36.2–36.6; O2SAT 97–100
[2021-11-05] MEDS: oxyCODONE HCL (*CRX) 5 MG TAB IR PO (02:51)
[2021-11-05] MEDS: ACETAMINOPHEN 500 MG TABLET 1000 MG PO ×2 (03:05→10:04)
[2021-11-05 06:11] LABS: Anion Gap 9 mmol/L (8-16); Blood Urea Nitrogen 13 mg/dL (9-20); Calcium 8.8 mg/dL (8.4-10.2); Carbon Dioxide 24 mmol/L (22-30); Chloride 100 mmol/L (98-107); Estimated CRCL calculation 90 ml/min; Estimated Glomerular Filt Rate > 60; Glucose 266 mg/dL (65-110); Potassium 4.3 mmol/L (3.4-5.0); Sodium 133 mmol/L (137-145)
--- NOTE | 2021-11-05 10:01 | PC.NURSE ---
waiting for pharmacy to send 0900 pepcid and senokot
[2021-11-05] MEDS: ASPIRIN 81 MG CHEWABLE TABLET PO (10:03)
[2021-11-05] MEDS: polyethylene glycoL 3350 17 GM POWD.PACK PO (10:04)
[2021-11-05] MEDS: METOPROLOL TARTRATE 50 MG TAB PO (10:04)
--- NOTE | 2021-11-05 11:09 | PM.IMCN ---
Assessment and Plan Assessment and plan (1) Closed left ankle fracture: Code(s): S82.892A - Other fracture of left lower leg, initial encounter for closed fracture Status: Acute Assessment and Plan: Postoperative day 0 status post ORIF left fibular and syndesmotic repair. Wound care, pain control, and DVT prophylaxis will be deferred to Dr. Hall. (2) Congestive heart failure: Code(s): I50.9 - Heart failure, unspecified Status: Acute Assessment and Plan: Recent echocardiogram showed an EF of about 30%. Appears clinically compensated. Avoid IV fluids and over-hydration. (3) Atrial fibrillation: Code(s): I48.91 - Unspecified atrial fibrillation Status: Acute Assessment and Plan: Continue metoprolol for rate control. (4) Anxiety: Code(s): F41.9 - Anxiety disorder, unspecified Status: Acute Assessment and Plan: Continue lorazepam at bedtime as needed. Additional Plan Thank you for allowing us to participate in this patient's care. Please do not hesitate to contact us with any questions. Supervising physician for this medical consultation is Dr. Saranya Castano. HPI Data of Consult Consult date: 11/05/21 Requesting Physician: Everton Hall MD Primary Care Provider: Pal Jennings, Consult Narrative Narrative: Edgardo Lucas is a 66 year old male no acute concerns at this time. Patient is being discharged today. He was concerned about social settings at home and mobility. Case management was able to subside those concerns. Patient will resume his Eliquis tomorrow evening and continue taking metoprolol. Review of Systems Review of Systems: All systems reviewed & are unremarkable except as noted in HPI and below PMFSH Past Medical History Medical History (Updated 11/04/21 @ 22:46 by Danuta Duenas PA-C) Anxiety Atrial fibrillation Congestive heart failure Recent ejection fraction of about 30%. Diverticulitis Hearing loss History of reduction of orbital fracture Osteoarthritis Surgical History Surgical History (Updated 11/04/21 @ 22:45 by Danuta Duenas PA-C) History of bilateral cataract extraction History of tonsillectomy Status post excision of lipoma (08/2018) Right upper back. Status post repair of fracture of orbit Family History Family History Father Hypertension Social History Social History (Updated 11/04/21 @ 22:46 by Danuta Duenas PA-C) Social History: Surrogate decision maker: Pinky Lucas, . Code status: Full code. Smoking packs per day: 1 Smoking cigarettes per day: 20.0 Years smoked: 20 Smoking pack-years: 20.00 Smoking status: Former smoker Additional smoking assessment comments: Quit in 2007. Alcohol intake: current Drinks per week: 5 Substance use: current Substance use type: marijuana Other substance usage details: SMALL BUD EVERY DAY Living arrangements: with family Additional living arrangements comments: Lives with in [place]. Additional occupation/education comments: Retired. Meds Home Medications and Allergies Home Medications Medication Instructions Recorded Confirmed Type lorazepam 1 mg PO HS 10/25/21 11/04/21 History metoprolol tartrate 50 mg PO BID 10/27/21 11/04/21 History acetaminophen 1,000 mg PO Q6H #100 tablet 11/05/21 Rx apixaban [Eliquis] 5 mg PO Q12H #60 tablet NS 11/05/21 Rx oxycodone 5 mg PO Q4H PRN #40 tablet 11/05/21 Rx polyethylene glycol 3350 [Miralax] 17 g PO QAM #30 ea 11/05/21 Rx sennosides-docusate sodium 2 tab PO BID #120 tablet 11/05/21 Rx [Senokot-S] Allergies Allergy/AdvReac Type Severity Reaction Status Date / Time atorvastatin AdvReac Unknown HEAT Verified 11/04/21 11:00 INTOLERANT, MUSCLE
--- NOTE | 2021-11-05 11:16 | PM.PNORT ---
Progress Note: A&P Additional Plan Patient is approximately 21 hours since his open reduction internal fixation of left ankle syndesmosis and stabilization of the fibular shaft with trans osseous large fragment screw cortical screw. He has no pain. He still has numbness from his block which is dense on the top of the foot and near complete numbness in the bottom of his foot now. I have discussed precautions with him and I have reviewed instructions on the discharge summary. I have ordered a 25 hydroxy vitamin-D level and this pending. I advised him of this and he can call on Sunday to the office for that result to see if he needs aggressive supplementation. During the night he did have some tachycardia and metoprolol was started and he seems to have tolerated this very well. Last heart rates 83-88 systolic blood pressure 119. he denies any lightheadedness and did very well with his physical therapy this morning. He does have atrial fibrillation and is going to start his Eliquis tomorrow night at 9:00 p.m.. He is going to follow up with Dr. Chauhan his whey department operator. Dr. Ford asked me to remove the compression stitch from the groin on the right that was in place to provide compression and I did this without difficulty this morning. He has no swelling or signs of hematoma at the right groin. I will see him back in the office in approximately 12 days. I spoke with Conchita the hospitalist who felt he was safe to discharge as well. He has had atrial fibrillation on the groundwater monitoring technician with mild tachycardia which has since been controlled with metoprolol. Subjective Subjective Date/Time Seen: 11/05/21 11:16 Objective Data Vital Signs Vital Signs: Vital Signs - 24 hr 11/04/21 14:41 11/04/21 14:45 11/04/21 15:00 Temperature 36.1 C L Pulse Rate 103 H 101 H 111 H Respiratory Rate 15 15 15 Blood Pressure 121/96 H 125/92 H 120/95 H Pulse Oximetry 100 100 96 11/04/21 15:15 11/04/21 15:30 11/04/21 15:42 Temperature Pulse Rate 105 H 98 93 Respiratory Rate 20 20 17 Blood Pressure 115/86 119/93 H 113/93 H Pulse Oximetry 97 96 97 11/04/21 16:00 11/04/21 16:15 11/04/21 16:45 Temperature 36.4 C 36.4 C 36.4 C Pulse Rate 94 89 91 Respiratory Rate 16 16 16 Blood Pressure 125/88 125/91 H 125/90 Pulse Oximetry 96 100 99 11/04/21 17:45 11/04/21 19:20 11/04/21 20:00 Temperature 36.4 C 36.3 C L Pulse Rate 95 58 L 106 H Respiratory Rate 16 16 Blood Pressure 128/91 H 134/87 Pulse Oximetry 99 98 11/04/21 21:26 11/04/21 23:33 11/05/21 00:10 Temperature 36.6 C Pulse Rate 58 L 83 86 Respiratory Rate 17 Blood Pressure 129/90 Pulse Oximetry 97 11/05/21 03:13 11/05/21 04:00 11/05/21 08:00 Temperature 36.2 C L Pulse Rate 88 82 86 Respiratory Rate 18 Blood Pressure 111/69 Pulse Oximetry 97 11/05/21 09:51 11/05/21 10:04 Temperature 36.2 C L Pulse Rate 96 72 Respiratory Rate 18 Blood Pressure 108/83 Pulse Oximetry 99 Intake/Output Intake/Output: Intake & Output 11/02/21 11/03/21 11/04/21 11/05/21 23:59 23:59 23:59 23:59 Intake Total 930 890 Output Total 900 Balance 930 -10 Meds/Results Medications: Active Medications Generic Name Dose Route Start Last Admin Trade Name Aram PRN Reason Stop Dose Admin Acetaminophen 1,000 mg 11/04/21 16:00 11/05/21 10:04 Acetaminophen 500 Mg Tablet PO 1,000 mg Q6H THERESA Administration Aspirin 81 mg 11/05/21 08:00 11/05/21 10:03 Aspirin 81 Mg Chewable Tablet PO 81 mg DAILY@0800 THERESA Administration Famotidine 20 mg 11/04/21 21:00 11/04/21 21:26 Famotidine 20 Mg Tablet PO 20 mg Q12HR THERESA Administration Vancomycin HCl 1,000 mg in 250 mls @ 250 mls/hr 11/04/21 23:00 11/05/21 10:04 Vancomycin 1,000 Mg/D5w 250 Ml IVPB 11/05/21 11:59 250 mls/hr Q12H THERESA Administration Cefazolin Sodium 1 gm in 50 mls @ 100 mls/hr 11/04/21 20:00 11/05/21 03:36 Ancef 1 Gm/D5w 50 Ml Pm IVPB 11/05/21 1
[2021-11-05 11:22] LABS: Vitamin D 25 Hydroxy 21.7 ng/mL
[2021-11-05] MEDS: FAMOTIDINE 20 MG TABLET PO (11:39)
[2021-11-05] MEDS: MAGNESIUM HYDROXIDE SUSP 30 ML UDC PO (11:39)
--- NOTE | 2021-11-05 15:20 | PC.NURSE ---
pt showered and went over discharge instructions in detail with him. patient verbalizes understanding
== END 2021-11-05 15:50 | disposition home or self-care (01) ==
LOC: ANHSURGERY 10:04 → ANH2MED 15:52
PROVIDERS: Physician Assistant Surgical; PCP Internal Medicine; Visit Provider Orthopaedic Surgery
PROC: (CPT 27784; principal; 2021-11-04 12:00)
DX: S82.862A Displaced Maisonneuve's fracture of left leg, initial encounter for closed fracture (principal); S93.432A Sprain of tibiofibular ligament of left ankle, initial encounter; G89.18 Other acute postprocedural pain; X50.0XXA Overexertion from strenuous movement or load, initial encounter; R00.0 Tachycardia, unspecified; I48.91 Unspecified atrial fibrillation; I50.9 Heart failure, unspecified; I25.10 Atherosclerotic heart disease of native coronary artery without angina pectoris; F41.9 Anxiety disorder, unspecified; Z87.891 Personal history of nicotine dependence; F12.90 Cannabis use, unspecified, uncomplicated
CPT/HCPCS: 27784; 27829; 64450; 64445; 36415; 80048; 82306; 82652; 97116; 97162; 97165; 97530; A9270; C1713; J0690; J1100; J1170; J1885; J2250; J2370; J2405; J2704; J3010; J3370; J7120

== ENCOUNTER → 2023-08-01 12:43 | Outpatient (CLI) | payer MEDICARE, SELFPAY ==
--- NOTE | ~2023-08-01 | CT_ITS ---
EXAMINATION: CT sinus wo con DATE: 08/01/2023 12:58 INDICATION: Chronic sinusitis TECHNIQUE: Computed tomography (CT) of the paranasal sinuses was performed without contrast. Iterativ e reconstruction technique was employed. Exam dose: 277.35 mGy-cm total exam DLP. COMPARISON: None FINDINGS: There is anterior nasal septal rightward deviation. More posteriorly there is leftward deviation of the superior portion of the nasal septum. Jade bullosa of right middle nasal turbinate. Moderate soft tissue swelling of the nasal turbinates , greater on the left. There is opacification of the maxillary antrum and extensive opacification of the infundibulum and pa rtial opacification of ethmoid bulla bilaterally. Left nasal antral window. Mild right and minimal left frontal sinus mucoperiosteal thickening, most prominent in the frontoethm oid area is, particularly on the right. There is patchy opacification of ethmoid air cells bilaterally. There is moderately prominent nodular mucoperiosteal thickening of the maxillary and sphenoid sinuses. The mastoid air cells are well-developed and aerated bilaterally. IMPRESSION: Nasal septal deviation Jade bullosa of right middle nasal turbinate Moderate soft tissue prominence of the nasal turbinates, greater on the left Extensive soft tissue thickening of the ostiomeatal units bilaterally Left nasal antral window Soft tissue thickening of the frontoethmoid arteries, right greater than left, mild mucoperiosteal th ickening of right frontal sinus Prominent nodular mucoperiosteal thickening of the maxillary and sphenoid sinuses, extensive patchy o pacification of the bilateral ethmoid air cells Reviewed, dictated and finalized at [facility]. Reviewed, dictated and finalized at [facility]. ONAL [facility] IMPRESSION: Nasal septal deviation Jade bullosa of right middle nasal turbinate Moderate soft tissue prominence of the nasal turbinates, greater on the left Extensive soft tissue thickening of the ostiomeatal units bilaterally Left nasal antral window Soft tissue thickening of the frontoethmoid arteries, right greater than left, mild mucoperiosteal thickening of right frontal sinus Prominent nodular mucoperiosteal thickening of the maxillary and sphenoid sinus es, extensive patchy opacification of the bilateral ethmoid air cells
== END ==
PROVIDERS: PCP Internal Medicine; Visit Provider Allergy & Immunology
DX: J32.9 Chronic sinusitis, unspecified (principal); J34.2 Deviated nasal septum; R93.0 Abnormal findings on diagnostic imaging of skull and head, not elsewhere classified
CPT/HCPCS: 70486